=== PATIENT | female | born 1980 | race African-American/Black ===

== ENCOUNTER 2016-07-20 11:42 | Emergency (ER) | payer MEDICARE, OTHER ==
[~2016-07-20] VITALS: Ht 167.6 cm; Wt 99.8 kg
[~2016-07-20 11:42] MED LIST: ALPR0.25 PO; BUSP30TA PO; HYDR-2678 PO; LEVO125T PO; LOSA100T6 PO; LOSA25TA PO; METO25TA4 PO; METO50TA2 PO; MEXI150C PO
[2016-07-20 12:37] VITALS: BP 132/71
[2016-07-20] MEDS ORDERED: AMOX875T PO (13:37)
[2016-07-20] MEDS ORDERED: OFLO5DRO7 EACH EAR (13:37)
--- NOTE | 2016-07-20 13:37 | PHYS DOC ---
Past Medical History Past Medical History: Other Additional Past Medical Histor: CARDIAC ARREST IN , DEFIB PLACED IN JANUARY Past Surgical History: Cholecystectomy, Tonsillectomy, Tubal ligation, Other Additional Past Surgical Histo: R) ectopic with removal of fallopian tube, L) foot--ones crushed Alcohol Use: None Drug Use: None Adult General Chief Complaint Chief Complaint: EARACHE/EAR PAIN [facility] Patient is a 35 year old female who presents with moderate right ear pain that began 2 months ago. Patient states for the last couple days she's been having drainage from the ear. Patient denies any fever. Denies any fever cough or congestion. Review of Systems Review of Systems Constitutional: see HPI Eyes: Denies change in visual acuity, redness, or eye pain [] HENT: Right ear pain Respiratory:see HPI Cardiovascular: No additional information not addressed in HPI [] GI: Denies abdominal pain, nausea, vomiting, bloody stools or diarrhea [] : Denies dysuria or hematuria [] Musculoskeletal: Denies back pain or joint pain [] Integument: Denies rash or skin lesions [] Neurologic: Denies headache, focal weakness or sensory changes [] Endocrine: Denies polyuria or polydipsia [] Allergies Allergies Allergies Coded Allergies Type Severity Reaction Last Updated Verified morphine Allergy Mild Nausea and Vomiting 12/03/14 Yes Physical Exam Physical Exam Constitutional: Well developed, well nourished, no acute distress, non-toxic appearance. [] HENT: Normocephalic, atraumatic, bilateral external ears normal, oropharynx moist, no oral exudates, nose normal. [] Right ear canal has small amount of yellow exudate, ear canal is erythematous. The TM is also mildly injected. Eyes: PERRLA, EOMI, conjunctiva normal, no discharge. [] Neck: Normal range of motion, no tenderness, supple, no stridor. [] Cardiovascular:Heart rate regular rhythm, no murmur [] Lungs & Thorax: Bilateral breath sounds clear to auscultation [] Abdomen: Bowel sounds normal, soft, no tenderness, no masses, no pulsatile masses. [] Skin: Warm, dry, no erythema, no rash. [] Back: No tenderness, no CVA tenderness. [] Extremities: No tenderness, no cyanosis, no clubbing, ROM intact, no edema. [] Neurologic: Alert and oriented X 3, normal motor function, normal sensory function, no focal deficits noted. [] Psychologic: Affect normal, judgement normal, mood normal. [] Current Patient Data Vital Signs Vital Signs Date Time Temp Pulse Resp B/P Pulse Ox O2 Delivery O2 Flow Rate FiO2 07/20/16 12:37 98.1 64 20 98 Room Air 98.1 EKG EKG [] Radiology/Procedures Radiology/Procedures [] Course & Med Decision Making Course & Med Decision Making Pertinent Labs and Imaging studies reviewed. (See chart for details) Patient has right otitis media and externa. Discharged with amoxicillin and ofloxacin. Follow-up with PCP in 1-2 weeks as needed. Provided return precautions and discharged in stable condition. Dragon Disclaimer Dragon Disclaimer This electronic medical record was generated, in whole or in part, using a voice recognition dictation system. Departure Departure Impression: Primary Impression: Otitis media Additional Impression: Otitis externa Disposition: HOME, SELF-CARE Condition: STABLE Referrals: NO PCP (PCP) Follow-up with your own doctor in 1-2 weeks. Patient Instructions: Otitis Externa, Otitis Media, Adult Additional Instructions: You have right ear infection. We did put you on oral antibiotics and ear drops, make sure you complete oral antibiotics, use the eardrops as prescribed. Come back to the ED if symptoms worsen. Take Tylenol/ Motrin for pain or fever. Scripts Ofloxacin 5 Ml Drops5 Drop EACH EAR BID #10 ML Prov:ALYSA GUZMAN APRN 07/20/16 Amoxicillin 875 Mg Tablet1 Tab PO BID #20 TAB Prov:ALYSA GUZMAN APRN 07/20/16 Problem Qualifiers Primary Impression: Otitis media Otitis media type: other nonsuppurative Laterality: right Chronicity: acute Recurrence: not specified as recurrent Qualified Code: H65.191 - Other acute nonsuppurative otitis media, right ear Additional Impression: Otitis externa Otitis externa type: other infective Laterality: right Chronicity: acute Qualified Code: H60.391 - Other infective otitis externa, right ear ALYSA GUZMAN APRN Jul 20, 2016 13:37
== END 2016-07-20 13:47 | disposition home or self-care (01) ==
LOC: ER 11:49
DX: H65.191 Other acute nonsuppurative otitis media, right ear (principal); H60.391 Other infective otitis externa, right ear; Z88.5 Allergy status to narcotic agent; Z95.810 Presence of automatic (implantable) cardiac defibrillator
CPT/HCPCS: 99283

== ENCOUNTER 2018-05-14 05:24 | Emergency (ER) | payer MEDICARE ==
[~2018-05-14] VITALS: Ht 167.6 cm; Wt 104.3 kg
[~2018-05-14 05:24] MED LIST changes: +AMOX875T PO; +LOSA100T14 PO; -LOSA100T6 PO; -METO50TA2 PO; +METO50TA6 PO; +OFLO5DRO7 EACH EAR
[2018-05-14 05:31] VITALS: BP 150/87
[2018-05-14] MEDS ORDERED: MELO7.5T29 PO (05:49)
[2018-05-14] MEDS ORDERED: SULF1TAB24 PO (05:49)
--- NOTE | 2018-05-14 05:49 | PHYS DOC ---
Past Medical History Past Medical History: Other Additional Past Medical Histor: CARDIAC ARREST IN , DEFIB PLACED IN JANUARY Past Surgical History: Cholecystectomy, Tonsillectomy, Tubal ligation, Other Additional Past Surgical Histo: R) ectopic with removal of fallopian tube, L) foot--ones crushed Alcohol Use: None Drug Use: None Adult General Chief Complaint Chief Complaint: ABSCESS HPI HPI Patient is a 37 year old female who presents with left armpit infection. Patient has had previous abscesses in the left armpit. This particular episode started several days ago with ones that the patient has treated with incision and drainage herself. She has been able to obtain purulent drainage from them. She also treated this one but continues to hurt. Patient denies any fever. Denies any numbness, tingling, or discomfort in the hand. Denies any other rashes or boils. [] Review of Systems Review of Systems Constitutional: Denies fever or chills [] Eyes: Denies change in visual acuity, redness, or eye pain [] HENT: Denies nasal congestion or sore throat [] Respiratory: Denies cough or shortness of breath [] Cardiovascular: No chest pain or palpitations[] GI: Denies abdominal pain, nausea, vomiting, bloody stools or diarrhea [] : Denies dysuria or hematuria [] Musculoskeletal: Denies back pain or joint pain [] Integument: See history of present illness[] Neurologic: Denies headache, focal weakness or sensory changes [] Endocrine: Denies polyuria or polydipsia [] All other systems were reviewed and found to be within normal limits, except as documented in this note. Allergies Allergies Allergies Coded Allergies Type Severity Reaction Last Updated Verified amoxicillin Allergy Mild 05/14/18 Yes morphine Allergy Mild Nausea and Vomiting 12/03/14 Yes Physical Exam Physical Exam Constitutional: Well developed, well nourished, no acute distress, non-toxic appearance. [] HENT: Normocephalic, atraumatic, bilateral external ears normal, oropharynx moist, no oral exudates, nose normal. [] Eyes: PERRLA, EOMI, conjunctiva normal, no discharge. [] Neck: Normal range of motion, no tenderness, supple, no stridor. [] Cardiovascular:Heart rate regular rhythm, no murmur, rate at time of my exam was in the 90s. [] Lungs & Thorax: Bilateral breath sounds clear to auscultation [] Abdomen: Not evaluated[] Skin: Warm, dry, there is erythema and edema in the left axilla. There is a draining abscess present. Draining purulent material.. [] Back: No tenderness, no CVA tenderness. [] Extremities: No tenderness, no cyanosis, no clubbing, ROM intact, no edema. [] Neurologic: Alert and oriented X 3, normal motor function, normal sensory function, no focal deficits noted. [] Psychologic: Affect normal, judgement normal, mood normal. [] Current Patient Data Vital Signs Vital Signs Date Time Temp Pulse Resp B/P (MAP) Pulse Ox O2 Delivery O2 Flow Rate FiO2 05/14/18 05:31 97.5 108 18 150/87 (108) 100 Room Air 97.5 EKG EKG [] Radiology/Procedures Radiology/Procedures [] Course & Med Decision Making Course & Med Decision Making Pertinent Labs and Imaging studies reviewed. (See chart for details) Medical decision making: Patient appears to have cutaneous abscess/hidradenitis super T Gloria that is currently draining. We will add antibiotic coverage as well as better pain management. There is no evidence of sepsis, no staph scalded skin syndrome, no toxic epidermal necrolysis.[] Dragon Disclaimer Dragon Disclaimer This electronic medical record was generated, in whole or in part, using a voice recognition dictation system. Departure Departure Impression: Primary Impression: Hidradenitis suppurativa of left axilla Disposition: 01 HOME, SELF-CARE Condition: GOOD Referrals: NO PCP (PCP) Patient Instructions: Hidradenitis Suppurativa, Sweat Gland Abscess Additional Instructions: Apply warm compresses to the area at least 4 times a day for 15 minutes at a time. Follow-up with your regular doctor in 2 days. If you do not have a regular doctor, list of local clinics will be provided for you. Return to the ER if worsening pain, fever of more than 101, or any other concerns. Scripts Meloxicam (MELOXICAM) 7.5 Mg Tablet 7.5 MG PO DAILY, #20 TAB Prov: MOR JOHNSON DO 05/14/18 Sulfamethoxazole/Trimethoprim (BACTRIM DS TABLET) 1 Each Tablet 2 TAB PO BID, #40 TAB Prov: MOR JOHNSON DO 05/14/18 MOR JOHNSON DO May 14, 2018 05:49
[2018-05-14] MEDS ORDERED: DIPHTH,PERTUSS(ACELL),TET TOX 0.5 ML DISP.SYRIN. VAX IM ONE (06:00)
[2018-05-14] MEDS ORDERED: KETOROLAC 15 MG/ML VIAL. IM ONE (06:00)
== END 2018-05-14 05:50 | disposition home or self-care (01) ==
LOC: ER 05:24
DX: L73.2 Hidradenitis suppurativa (principal); Z88.1 Allergy status to other antibiotic agents; Z88.5 Allergy status to narcotic agent
CPT/HCPCS: 90471; 90715; 96372; 99283; J1885

== ENCOUNTER 2019-08-06 10:48 | Emergency (ER) | payer MEDICARE ==
[~2019-08-06] VITALS: Ht 167.6 cm; Wt 108.0 kg
[~2019-08-06 10:48] MED LIST changes: +MELO7.5T29 PO; +SULF1TAB24 PO
[2019-08-06 11:43] VITALS: BP 142/88
[2019-08-06] MEDS ORDERED: LIDOCAINE 1% Multi-Dose 20 ML VIAL. INJ ONE (12:00)
[2019-08-06] MEDS ORDERED: OXYC1TAB15 PO (12:21)
[2019-08-06] MEDS ORDERED: SULF1TAB24 PO (12:21)
--- NOTE | 2019-08-06 12:21 | PHYS DOC ---
Past Medical History Past Medical History: Other Additional Past Medical Histor: CARDIAC ARREST, SARCOIDOSIS Past Surgical History: Cholecystectomy, Tonsillectomy, Tubal ligation, Other Additional Past Surgical Histo: R) ectopic with removal of fallopian tube, L) foot--ones crushed Smoking Status: Never Smoker Alcohol Use: None Drug Use: None General Adult EDM: Chief Complaint: ABSCESS HPI: HPI: Patient is a 38-year-old female with a history of hidradenitis separative a who presents with a golf ball size swollen tender area in the left axilla. She denies any fever chills or sweats. She states this is been increasing in size and pain over the last few days. She has tried to squeeze it and poked things and it but she has been unsuccessful. [] Review of Systems: Review of Systems: Constitutional: Denies fever or chills. [] Eyes: Denies change in visual acuity. [] HENT: Denies nasal congestion or sore throat. [] Respiratory: Denies cough or shortness of breath. [] Cardiovascular: Denies chest pain or edema. [] GI: Denies abdominal pain, nausea, vomiting, bloody stools or diarrhea. [] : Denies dysuria. [] Musculoskeletal: Denies back pain or joint pain. [] Integument: Per HPI] Neurologic: Denies headache, focal weakness or sensory changes. [] Endocrine: Denies polyuria or polydipsia. [] Lymphatic: Denies swollen glands. [] Psychiatric: Denies depression or anxiety. [] Heart Score: Risk Factors: Risk Factors: DM, Current or recent (<one month) smoker, HTN, HLP, family history of CAD, obesity. Risk Scores: Score 0 - 3: 2.5% MACE over next 6 weeks - Discharge Home Score 4 - 6: 20.3% MACE over next 6 weeks - Admit for Clinical Observation Score 7 - 10: 72.7% MACE over next 6 weeks - Early Invasive Strategies Current Medications: Current Medications Medications (Trade) Dose Ordered Sig/Cristina Start Time Stop Time Status Last Admin Dose Admin Lidocaine HCl (Lidocaine 1% 20ml Vial) 20 ml 1X ONCE 08/06/19 12:00 08/06/19 12:01 DC 08/06/19 11:57 20 ML Allergies: Allergies: Allergies Coded Allergies Type Severity Reaction Last Updated Verified amoxicillin Allergy Mild YEAST INFECTION 2/2/19 Yes morphine Allergy Mild Nausea and Vomiting 12/03/14 Yes Physical Exam: PE: Constitutional: Well developed, well nourished, moderate distress, non-toxic appearance. [] HENT: Normocephalic, atraumatic, bilateral external ears normal, oropharynx moist, no oral exudates, nose normal. [] Eyes: PERRLA, EOMI, conjunctiva normal, no discharge. [] Neck: Normal range of motion, no tenderness, supple, no stridor. [] Cardiovascular:Heart rate regular rhythm, no murmur [] Lungs & Thorax: Bilateral breath sounds clear to auscultation [] Abdomen: Bowel sounds normal, soft, no tenderness, no masses, no pulsatile masses. [] Skin: Golf ball size abscess that is pointing in the left axilla. [] Back: No tenderness, no CVA tenderness. [] Extremities: No tenderness, no cyanosis, no clubbing, ROM intact, no edema. [] Neurologic: Alert and oriented X 3, normal motor function, normal sensory function, no focal deficits noted. [] Psychologic: Affect normal, judgement normal, mood normal. [] Current Patient Data: Vital Signs: Vital Signs Date Time Temp Pulse Resp B/P (MAP) Pulse Ox O2 Delivery O2 Flow Rate FiO2 08/06/19 11:43 98.0 77 18 142/88 (106) 99 Room Air 98.0 EKG: EKG: [] Radiology/Procedures: Radiology/Procedures: [] Course & Med Decision Making: Course & Med Decision Making Pertinent Labs and Imaging studies reviewed. (See chart for details) [] Dragon Disclaimer: Dragon Disclaimer: This electronic medical record was generated, in whole or in part, using a voice recognition dictation system. Departure Departure Impression: Primary Impression: Abscess of left axilla Disposition: HOME, SELF-CARE Condition: IMPROVED Referrals: ELIZABETH LEON MD (PCP) Patient Instructions: Abscess Scripts Sulfamethoxazole/Trimethoprim (BACTRIM DS TABLET) 1 Each Tablet 1 TAB PO BID, #20 TAB Prov: KAILEE LYNN DO 08/06/19 Oxycodone/Apap 5-325 (PERCOCET 5-325 MG TABLET ) 1 Each Tablet 1 TAB PO PRN Q6HRS PRN for PAIN, #20 TAB 0 Refills Prov: KAILEE LYNN DO 08/06/19 Incision and Drainage Indication: abscess Procedure: The patient was positioned appropriately. Local anesthesia was [10 cc 1% lidocaine ]. An incision was then made over the apex of the lesion and large amount of purulent material was expressed. The drainage cavity was irrig ated and packed with sterile gauze. The patients tetanus status updated as needed. The patient tolerated the procedure well. Complications: none. KAILEE LYNN DO Aug 06, 2019 12:21
== END 2019-08-06 12:41 | disposition home or self-care (01) ==
LOC: ER 10:48
DX: L02.412 Cutaneous abscess of left axilla (principal); Z88.1 Allergy status to other antibiotic agents; Z88.8 Allergy status to other drugs, medicaments and biological substances
CPT/HCPCS: 10060; 99283; J3490

== ENCOUNTER 2020-02-08 14:24 | Emergency (ER) | payer MEDICARE ==
[~2020-02-08] VITALS: Ht 167.6 cm; Wt 107.2 kg
[~2020-02-08 14:24] MED LIST changes: +OXYC1TAB15 PO
[2020-02-08] MEDS ORDERED: LIDOCAINE 1%/EPI 1:100,000 20 ML VIAL. SQ ONE (15:30)
[2020-02-08] MEDS ORDERED: HYDROcodone/APAP 5/325MG 1 TAB TABLET PO ONE (16:00)
[2020-02-08] MEDS ORDERED: CLIN150C14 PO (16:06)
[2020-02-08] MEDS ORDERED: HYDR-2761 PO (16:06)
--- NOTE | 2020-02-08 16:06 | ED.ADGEN ---
Past Medical History Past Medical History: Other Additional Past Medical Histor: CARDIAC ARREST, SARCOIDOSIS Past Surgical History: Cholecystectomy, Tonsillectomy, Tubal ligation, Other Additional Past Surgical Histo: R) ectopic with removal of fallopian tube, L) foot--ones crushed Smoking Status: Never Smoker Alcohol Use: None Drug Use: None General Adult EDM: Chief Complaint: ABSCESS HPI: HPI: is negative unless otherwise noted in HPI. Patient is a 39 year old AA female who presents emergency department with complaints of pain, swelling, and warmth in her right armpit for the last 2 weeks. Patient states she has a bad abscess. She denies any fever, numbness, tingling, or decreased sensation of affected area. She denies any drainage or bleeding from the site. Patient currently rates her pain a 10 out of 10 on the pain scale, she denies any alleviating factors, the pain increases with palp ation and movement. Review of Systems: Review of Systems: Constitutional: Denies fever or chills. [] Eyes: Denies change in visual acuity. [] HENT: Denies nasal congestion or sore throat. [] Respiratory: Denies cough or shortness of breath. [] Cardiovascular: Denies chest pain or edema. [] GI: Denies abdominal pain, nausea, vomiting, bloody stools or diarrhea. [] : Denies dysuria. [] Musculoskeletal: Denies back pain or joint pain. [] Integument: Denies rash. [] Neurologic: Denies headache, focal weakness or sensory changes. [] Endocrine: Denies polyuria or polydipsia. [] Lymphatic: Denies swollen glands. [] Psychiatric: Denies depression or anxiety. [] Current Medications: Current Medications Medications (Trade) Dose Ordered Sig/Cristina Start Time Stop Time Status Last Admin Dose Admin Acetaminophen/ Hydrocodone Bitart (Lortab 5/325) 1 tab 1X ONCE 02/08/20 16:00 02/08/20 16:01 DC 02/08/20 16:17 1 TAB Lidocaine/ Epinephrine (LIDOCAINE 1%-EPI 1:100,000 Multi-Dose) 20 ml 1X ONCE 02/08/20 15:30 02/08/20 15:31 DC 02/08/20 15:30 20 ML Allergies: Allergies: Allergies Coded Allergies Type Severity Reaction Last Updated Verified amoxicillin Allergy Mild YEAST INFECTION 05/14/18 Yes morphine Allergy Mild Nausea and Vomiting 12/03/14 Yes See Above Physical Exam: PE: Constitutional: Well developed, well nourished, no acute distress, non-toxic appearance. [] HENT: Normocephalic, atraumatic, bilateral external ears normal, nose normal. [] Eyes: PERRLA, EOMI, conjunctiva normal, no discharge. [] Neck: Normal range of motion, no stridor. [] Cardiovascular:Heart rate regular rhythm Lungs & Thorax: Respirations even and unlabored, no retractions, no respiratory distress Skin: Warm, dry; erythema, warmth, and fluctuance noted to right axilla concerning for abscess, no visible pustule, no drainage or bleeding, approximately 5 cm in diameter Extremities: No cyanosis, ROM intact, no edema. [] Neurologic: Alert and oriented X 3, no focal deficits noted. [] Psychologic: Affect normal, judgement normal, mood normal. [] Current Patient Data: Vital Signs: Vital Signs Date Time Temp Pulse Resp B/P (MAP) Pulse Ox O2 Delivery O2 Flow Rate FiO2 02/08/20 16:19 66 16 127/81 (96) 98 Room Air 02/08/20 14:36 98.0 98.0 EKG: EKG: [] Heart Score: Risk Factors: Risk Factors: DM, Current or recent (<one month) smoker, HTN, HLP, family history of CAD, obesity. Risk Scores: Score 0 - 3: 2.5% MACE over next 6 weeks - Discharge Home Score 4 - 6: 20.3% MACE over next 6 weeks - Admit for Clinical Observation Score 7 - 10: 72.7% MACE over next 6 weeks - Early Invasive Strategies Radiology/Procedures: Radiology/Procedures: Indication: Right axilla abscess Procedure: The patient was positioned appropriately. Local anesthesia was 1% planning analyst with epi. An incision was then made over the apex of the lesion and large amount of purulent blood-streaked material was expressed. The drainage cavity was packed with iodoform gauze. The patient tolerated the procedure well, minimal blood loss. Complications: none. Course & Med Decision Making: Course & Med Decision Making Pertinent Labs and Imaging studies reviewed. (See chart for details) Patient presented for evaluation and treatment of right axilla abscess. Incision and drainage as documented above. The patient was prescribed cli ndamycin 300 mg 4 times daily x7 days. She was instructed to return to the ER follow-up with her primary care doctor in 2 days to have the packing removed. Prescription also written for hydrocodone to take for severe pain. Patient Verbalized an understanding of home care, medications, follow-up, and return to ED instructions and was in agreement with the plan of care. []I have reviewed the PA/AUTO APPRAISER's note and Plan of Care. I was available for consultation as needed during the patient's visit in the emergency department. I agree with the clinical impression, plans and disposition. Dragon Disclaimer: Dragsheryl Disclaimer: This electronic medical record was generated, in whole or in part, using a voice recognition dictation system. Departure Departure Impression: Primary Impression: Abscess of axilla, right Disposition: 01 DC HOME SELF CARE/HOMELESS Condition: STABLE Referrals: NO PCP (PCP) Patient Instructions: Abscess, Care After Additional Instructions: Fill the prescription(s) and use as directed. You may also take ibuprofen as needed for pain. Apply warm, moist packs to the area to help decrease discomfort. Follow up with your primary care doctor or return to the ER in 48 hours to have wound rechecked and packing removed. Return to the ER sooner if your symptoms worsen. [] Scripts Hydrocodone Bit/Acetaminophen (HYDROCODONE-APAP 5-325 ) 1 Tab Tablet 0.5-1 TAB PO PRN Q6HRS PRN for SEVERE PAIN 7-10 for 3 Days, #10 TAB 0 Refills Prov: BRODIE POLLACK COMPRESSED AIR PILE DRIVER OPERATOR 02/08/20 Clindamycin Hcl (CLINDAMYCIN HCL) 150 Mg Capsule 450 MG PO TID for 7 Days, #63 CAP 0 Refills Prov: BRODIE POLLACK COMPRESSED AIR PILE DRIVER OPERATOR 02/08/20 BRODIE POLLACK COMPRESSED AIR PILE DRIVER OPERATOR Feb 08, 2020 16:06 ALBA RHODES MD Feb 08, 2020 21:17
[2020-02-08 16:19] VITALS: BP 127/81
== END 2020-02-08 16:20 | disposition home or self-care (01) ==
LOC: ER 14:24
DX: L02.411 Cutaneous abscess of right axilla (principal); I25.2 Old myocardial infarction; Z90.89 Acquired absence of other organs; Z90.49 Acquired absence of other specified parts of digestive tract; Z98.51 Tubal ligation status; Z98.890 Other specified postprocedural states; Z88.1 Allergy status to other antibiotic agents; Z88.6 Allergy status to analgesic agent
CPT/HCPCS: 10061; 99284; J3490

== ENCOUNTER 2020-02-11 12:04 | Emergency (ER) | payer MEDICARE ==
[~2020-02-11] VITALS: Ht 167.6 cm; Wt 105.0 kg
[~2020-02-11 12:04] MED LIST changes: +CLIN150C14 PO; +HYDR-2761 PO
[2020-02-11 12:20] VITALS: BP 130/79
[2020-02-11] MEDS ORDERED: NAPROXEN 500 MG TABLET PO STA (12:48)
[2020-02-11] MEDS ORDERED: ONDANSETRON ODT 4 MG TAB.RAPDIS. PO ONE (13:00)
[2020-02-11] MEDS ORDERED: HYDROcodone/APAP 5/325MG 1 TAB TABLET PO ONE (13:00)
[2020-02-11] MEDS ORDERED: HYDR-2761 PO (13:14)
--- NOTE | 2020-02-11 13:14 | PHYS DOC ---
Past Medical History Past Medical History: Other Additional Past Medical Histor: CARDIAC ARREST, SARCOIDOSIS Past Surgical History: Cholecystectomy, Tonsillectomy, Tubal ligation, Other Additional Past Surgical Histo: R) ectopic with removal of fallopian tube, L) foot--ones crushed Smoking Status: Never Smoker Alcohol Use: None Drug Use: None General Adult EDM: Chief Complaint: WOUND CHECK HPI: HPI: Patient is a 39 year old female patient who presents to the ED today for wound check for an abscess that was drained from the right axilla 4 days ago. Patient states she removed the packing on Wednesday but was not sure if they put more than one packing. Denies any fever. Review of Systems: Review of Systems: Constitutional: Denies fever or chills. [] Musculoskeletal: Denies back pain or joint pain. [] Integument: Wound check right axilla abscess Neurologic: Denies headache, focal weakness or sensory changes. [] Psychiatric: Denies depression or anxiety. [] Heart Score: Risk Factors: Risk Factors: DM, Current or recent (<one month) smoker, HTN, HLP, family history of CAD, obesity. Risk Scores: Score 0 - 3: 2.5% MACE over next 6 weeks - Discharge Home Score 4 - 6: 20.3% MACE over next 6 weeks - Admit for Clinical Observation Score 7 - 10: 72.7% MACE over next 6 weeks - Early Invasive Strategies Current Medications: Current Medications Medications (Trade) Dose Ordered Sig/Cristina Start Time Stop Time Status Last Admin Dose Admin Acetaminophen/ Hydrocodone Bitart (Lortab 5/325) 2 tab 1X ONCE 02/11/20 13:00 02/11/20 13:01 DC 02/11/20 13:07 2 TAB Naproxen (Naprosyn) 500 mg 1X STAT 02/11/20 12:48 02/11/20 12:52 DC 02/11/20 13:07 500 MG Ondansetron HCl (Zofran Odt) 4 mg 1X ONCE 02/11/20 13:00 02/11/20 13:01 DC 02/11/20 13:06 4 MG Allergies: Allergies: Allergies Coded Allergies Type Severity Reaction Last Updated Verified amoxicillin Allergy Mild YEAST INFECTION 05/14/18 Yes morphine Allergy Mild Nausea and Vomiting 12/03/14 Yes Physical Exam: PE: Constitutional: Well developed, well nourished, no acute distress, non-toxic appearance. [] Skin: Warm, dry, right axilla with a nonindurated firm mass roughly 3 x 2 cm. There is no fluctuance to this region. There is a scabbed over region consistent with the previously drained abscess. Back: No tenderness, no CVA tenderness. [] Extremities: No tenderness, no cyanosis, no clubbing, ROM intact, no edema. [] Neurologic: Alert and oriented X 3, normal motor function, normal sensory function, no focal deficits noted. [] Psychologic: Affect normal, judgement normal, mood normal. [] Current Patient Data: Vital Signs: Vital Signs Date Time Temp Pulse Resp B/P (MAP) Pulse Ox O2 Delivery O2 Flow Rate FiO2 02/11/20 12:20 98.2 61 18 130/79 (96) 100 Room Air 98.2 EKG: EKG: [] Radiology/Procedures: Radiology/Procedures: [] Course & Med Decision Making: Course & Med Decision Making Pertinent Labs and Imaging studies reviewed. (See chart for details) This is a 39-year-old female patient presenting to the ED today with wound check for an abscess that was drained 4 days ago, she removed her own packing 2 days ago. I recommended this patient follow-up with a general surgeon and have this abscess removed surgically considering is still firm right now with no fluctuance. She is currently on clindamycin. Provided her information for the surgeon. Rosmery Disclaimer: Rosmery Disclaimer: This electronic medical record was generated, in whole or in part, using a voice recognition dictation system. Departure Departure Impression: Primary Impression: Abscess of axilla, right Disposition: 01 DC HOME SELF CARE/HOMELESS Condition: STABLE Referrals: NO PCP (PCP) ALBA ZUÑIGA MD follow up in 1-2 weeks Patient Instructions: Abscess Additional Instructions: You have an abscess to the right axilla that needs to be followed up with a general surgeon as an outpatient. Continue applying warm compresses to the area. Continue taking the antibiotics you got from the emergency room. Come back to the ED at any point it worsens Scripts Hydrocodone Bit/Acetaminophen (HYDROCODONE-APAP 5-325 ) 1 Tab Tablet 1 TAB PO PRN Q6HRS PRN for PAIN, #20 TAB 0 Refills Prov: ALYSA GUZMAN PLASTICS SPREADING MACHINE OPERATOR 02/11/20 ALYSA GUZMAN APRN Feb 11, 2020 13:14
== END 2020-02-11 13:29 | disposition home or self-care (01) ==
LOC: ER 12:04
DX: L02.411 Cutaneous abscess of right axilla (principal); I25.2 Old myocardial infarction; Z90.49 Acquired absence of other specified parts of digestive tract; Z90.89 Acquired absence of other organs; Z98.51 Tubal ligation status; Z98.890 Other specified postprocedural states; Z88.1 Allergy status to other antibiotic agents; Z88.6 Allergy status to analgesic agent
CPT/HCPCS: 99284